=== PATIENT | female | born 1985 | race Caucasian/White ===

== ENCOUNTER 2019-05-01 13:54 | Emergency (ER) | payer SELFPAY ==
[~2019-05-01] VITALS: Ht 162.6 cm; Wt 52.6 kg
[2019-05-01 14:53] VITALS: BP 110/61
--- NOTE | 2019-05-01 14:53 | NUR ---
PT AMBULATORY TO ER BED 16 C/O BLE PAIN X 10 DAY, WORST THE PAST 5 DAYS AFTER A LONG FLIGHT FRM ARMENIA. PT DENIES CHEST PAIN OR SOB. STABLE VITALS. AWAITING MD WILSON.
--- NOTE | 2019-05-01 15:09 | NUR ---
MARSHALL NIETO AT BEDSIDE FOR EVAL.
--- NOTE | 2019-05-01 16:18 | NUR ---
U/S TECH AT BEDSIDE FOR LOWER EXTREMITY DUPLEX ULTRASOUND.
--- NOTE | 2019-05-01 16:54 | NUR ---
Patient discharged to home in stable condition. Written and verbal after care instructions given. Patient verbalizes understanding of instruction.
== END 2019-05-01 16:57 | disposition home or self-care (01) ==
LOC: ER 14:04
DX: R25.2 Cramp and spasm (principal)
CPT/HCPCS: 93970-TC